=== PATIENT | female | born 1960 | race Caucasian/White ===

== ENCOUNTER 2020-06-09 20:41 | Emergency (ER) | payer BC ==
[~2020-06-09] VITALS: Ht 160 cm; Wt 61.2 kg
[2020-06-09] MEDS ORDERED: ONDANSETRON 4 MG/2 ML (SDV) Z0FRAN ONE (21:11)
[2020-06-09] MEDS ORDERED: ONDANSETRON 4 MG/2 ML (SDV) Z0FRAN IVP ONE (21:30)
[2020-06-09] MEDS ORDERED: NS IV 1000 ML 1,000 ML IV SCH (21:30)
[2020-06-09 21:33] LABS: HEMOGLOBIN 13.8 G/DL (11.5-16.0); MEAN CORPUSCULAR HEMOGLOBIN 31 PG (25-34); WHITE BLOOD COUNT 13.3 10^3/uL (4.3-11.0)
[2020-06-09 21:34] LABS: BASOPHILS # (AUTO) 0.1 10^3/uL (0.0-0.1); BASOPHILS % (AUTO) 1 % (0-10); EOSINOPHILS # (AUTO) 0.1 10^3/uL (0.0-0.3); EOSINOPHILS % (AUTO) 1 % (0-10); HEMATOCRIT 40 % (35-52); LYMPHOCYTES # (AUTO) 2.3 X 10^3 (1.0-4.0); LYMPHOCYTES % (AUTO) 17 % (12-44); MEAN CORPUSCULAR HGB CONC 34 G/DL (32-36); MEAN CORPUSCULAR VOLUME 90 FL (80-99); MEAN PLATELET VOLUME 11.3 FL (7.4-10.4); MONOCYTES # (AUTO) 1.2 X 10^3 (0.0-1.0); MONOCYTES % (AUTO) 9 % (0-12); NEUTROPHILS # (AUTO) 9.5 X 10^3 (1.8-7.8); NEUTROPHILS % (AUTO) 72 % (42-75); PLATELET COUNT 263 10^3/uL (130-400); RED CELL DISTRIBUTION WIDTH 13.2 % (10.0-14.5)
--- NOTE | 2020-06-09 22:04 | ED GI ---
General Chief Complaint: Abdominal/GI Problems Stated Complaint: CHILLS,FEVER,ABD PAIN History of Present Illness Date Seen by Provider: Jun 09, 2020 Time Seen by Provider: 21:00 Initial Comments Patient began having abdominal cramping and faisal nausea and vomiting no stool today some fever and chills some abdominal pain but after vomiting felt much better. Timing/Duration: 4-6 Hours Severity/Quality: Moderate Location: Generalized Abdomen Radiation: No Radiation Activities at Onset: Rest Modifying Factors: Improves With Eating Associated Symptoms: Fever/Chills, Nausea/Vomiting, Weakness Allergies and Home Medications Allergies Coded Allergies: codeine (Verified Allergy, Unknown, 06/09/20) morphine (Verified Allergy, Unknown, 06/09/20) Patient Home Medication List Home Medication List Reviewed: Yes Review of Systems Review of Systems Constitutional: chills, fever, malaise EENTM: No Blurred Vision, No Double Vision Respiratory: No Symptoms Reported Cardiovascular: No Symptoms Reported Gastrointestinal: Denies Abdomen Distended; Abdominal Pain; Denies Diarrhea; Nausea, Vomiting Genitourinary: Denies Burning, Denies Flank Pain Musculoskeletal: No joint pain, No joint swelling, No muscle pain Skin: No no symptoms reported, No change in color Past [id number]-[id number]-Dycpfi Hx Past Med/Social Hx: Reviewed Nursing Past Med/Soc Hx Patient Social History Recent Foreign Travel: No Contact w/Someone Who Travel: No Physical Exam Vital Signs Vital Signs - First Documented 06/09/20 20:50 Temp 36.7 Pulse 133 Resp 20 B/P (MAP) 118/64 (82) Pulse Ox 97 O2 Delivery Nasal Cannula O2 Flow Rate 2.00 Capillary Refill : Height/Weight/BMI Height: '" Weight: lbs. oz. kg; BMI Method: General Appearance: WD/WN, moderate distress HEENT: PERRL/EOMI, TMs normal, pharynx normal Respiratory: lungs clear, normal breath sounds Cardiovascular: regular rate, rhythm, no murmur Gastrointestinal: abnormal bowel sounds; No distended, No guarding, No tenderness Extremities: normal range of motion, normal inspection Neurologic/Psychiatric: alert, normal mood/affect, oriented x 3 Skin: normal color, warm/dry Progress/Results/Core Measures Results/Orders Lab Results Laboratory Tests Test 06/09/20 21:15 06/09/20 21:20 06/09/20 21:30 Range/Units White Blood Count 13.3 H 4.3-11.0 10^3/uL Red Blood Count 4.48 4.35-5.85 10^6/uL Hemoglobin 13.8 11.5-16.0 G/DL Hematocrit 40 35-52 % Mean Corpuscular Volume 90 80-99 FL Mean Corpuscular Hemoglobin 31 25-34 PG Mean Corpuscular Hemoglobin Concent 34 32-36 G/DL Red Cell Distribution Width 13.2 10.0-14.5 % Platelet Count 263 130-400 10^3/uL Mean Platelet Volume 11.3 H 7.4-10.4 FL Neutrophils (%) (Auto) 72 42-75 % Lymphocytes (%) (Auto) 17 12-44 % Monocytes (%) (Auto) 9 0-12 % Eosinophils (%) (Auto) 1 0-10 % Basophils (%) (Auto) 1 0-10 % Neutrophils # (Auto) 9.5 H 1.8-7.8 X 10^3 Lymphocytes # (Auto) 2.3 1.0-4.0 X 10^3 Monocytes # (Auto) 1.2 H 0.0-1.0 X 10^3 Eosinophils # (Auto) 0.1 0.0-0.3 10^3/uL Basophils # (Auto) 0.1 0.0-0.1 10^3/uL My Orders Orders - MARA DU JR, MD Ondansetron Injection (Zofran Injectio (06/09/20 21:11) Cbc With Automated Diff (06/09/20 21:15) Comprehensive Metabolic Panel (06/09/20 21:15) Lipase (06/09/20 21:15) Ua Culture If Indicated (06/09/20 21:15) Coronavirus Sars-Cov-2 So 2018 (06/09/20 21:15) Ondansetron Injection (Zofran Injectio (06/09/20 21:30) Ns Iv 1000 Ml (Sodium Chloride 0.9%) (06/09/20 21:30) Medications Given in ED Current Medications Medications Dose Ordered Sig/Lili Route Start Time Stop Time Status Last Admin Dose Admin Ondansetron HCl 4 mg ONCE ONCE IVP 06/09/20 21:30 06/09/20 21:31 DC 06/09/20 21:13 4 MG Vital Signs/I&O 06/09/20 20:50 Temp 36.7 Pulse 133 Resp 20 B/P (MAP) 118/64 (82) Pulse Ox 97 O2 Delivery Nasal Cannula O2 Flow Rate 2.00 Progress Progress Note : Time: 22:45 Progress Note Significant discussion with the patient about current condition she feels a lot better and wants to go home so that we didn't get to do all the blood work she does want anymore blood work done since she just wants to go home and have nothing else to discuss with her about Zofran and she refused any Zofran as well this point we'll send her home on clear liquids follow-up with her PCP as she needs to. Departure Impression Primary Impression: Nausea and vomiting Qualified Codes: R11.2 - Nausea with vomiting, unspecified Disposition: 01 HOME, SELF-CARE Condition: Stable Departure-Patient Inst. Referrals: WILLY GRIMES MD (PCP/Family) Primary Care Physician Patient Instructions: Nausea and Vomiting, Adult Add. Discharge Instructions: Clear liquids at home return if problems. All discharge instructions reviewed with patient and/or family. Voiced understanding. MARA DU JR, MD Jun 09, 2020 22:04
--- NOTE | 2020-06-09 22:22 | NUR ---
Patient refused to have labs drawn.
[2020-06-09 23:01] LABS: SODIUM 135 MMOL/L (135-145)
[2020-06-09 23:02] LABS: ALANINE AMINOTRANSFERASE 15 U/L (0-55); ALBUMIN 3.7 GM/DL (3.2-4.5); ALKALINE PHOSPHATASE 85 U/L (40-136); BILIRUBIN,TOTAL 0.8 MG/DL (0.1-1.0); BUN/CREATININE RATIO 14; CALCIUM 8.9 MG/DL (8.5-10.1); CARBON DIOXIDE 21 MMOL/L (21-32); CHLORIDE 101 MMOL/L (98-107); CREATININE SERUM 0.65 MG/DL (0.60-1.30); GFR ESTIMATED > 60; GLUCOSE 152 MG/DL (70-105); POTASSIUM 5.2 MMOL/L (3.6-5.0); TOTAL PROTEIN 6.6 GM/DL (6.4-8.2)
[2020-06-09 23:03] LABS: LIPASE 12 U/L (8-78)
[2020-06-09 23:08] VITALS: BP 113/56
[2020-06-09] MEDS ORDERED: NS IV 1000 ML 1,000 ML IV ONE (23:30)
--- OUTSIDE RECORDS SUMMARY | 2020-06-10 00:04 | XMS REPORT | Continuity of Care Document ---
Author Organization Unknown Address Unknown Phone Unavailable Allergies Active Description Code Type Severity Reaction Onset Reported/Identified Relationship to Patient Clinical Status Yes codeine [id number] Drug Allergy Unknown N/A 06/09/2020 Yes morphine [id number] Drug Allergy Unknown N/A 06/09/2020 Medications There is no data. Problems There is no data. Procedures There is no data. Results Test Result Range Complete blood count (CBC) with automate d white blood cell (WBC) differential - 06/09/20 21:15 Blood leukocytes automated count (number/volume) 13.3 10*3/uL 4.3-11.0 Blood erythrocytes automated count (number/volume) 4.48 10*6/uL 4.35-5.85 Venous blood hemoglobin measurement (mass/volume) 13.8 g/dL 11.5-16.0 Blood hematocrit (volume fraction) 40 % 35-52 Automated erythrocyte mean corpuscular volume 90 [ foz_us] 80-99 Automated erythrocyte mean corpuscular h emoglobin (mass per erythrocyte) 31 pg 25-34 Automated erythrocyte mean corpuscular h emoglobin concentration measurement (mass/volume) 34 g/dL 32-36 Automated erythrocyte distribution width ratio 13. 2 % 10.0- 14.5 Automated blood platelet count (count/volume) 263 10*3/uL 130-400 Automated blood platelet mean volume measurement 11.3 [foz_us] 7.4-10.4 Automated blood neutrophils/100 leukocytes 72 % 42-75 Automated blood lymphocytes/100 leukocytes 17 % 12-44 Blood monocytes/100 leukocytes 9 % 0-12 Automated blood eosinophils/100 leukocytes 1 % 0-10 Automated blood basophils/100 leukocytes 1 % 0-10 Blood neutrophils automated count (number/volume) 9.5 10*3 1.8-7.8 Blood lymphocytes automated count (number/volume) 2.3 10*3 1.0-4.0 Blood monocytes automated count (number/volume) 1. 2 10*3 0.0-1.0 Automated eosinophil count 0.1 10*3/uL 0 .0-0.3 Automated blood basophil count (count/volume) 0.1 10*3/uL 0.0-0.1 Comprehensive metabolic panel - 06/09/20 21:30 Serum or plasma sodium measurement (moles/volume) 135 mmol/L 135-145 Serum or plasma potassium measurement (moles/volume) 5.2 mmol/L 3.6-5.0 Serum or plasma chloride measurement (moles/volume) 101 mmol/L 98-107 Carbon dioxide 21 mmol/L 21-32 Serum or plasma anion gap determination (moles/volume) 13 mmol/L 5-14 Serum or plasma urea nitrogen measurement (mass/volume ) 9 mg/dL 7-18 Serum or plasma creatinine measurement (mass/volume) 0.65 mg/dL 0.60-1.30 Serum or plasma urea nitrogen/creatinine mass ratio 14 NRG Serum or plasma creatinine measurement w ith calculation of estimated glomerular filtration rate > NRG Serum or plasma glucose measurement (mass/volume) 152 mg/dL 70-105 Serum or plasma calcium measurement (mass/volume) 8.9 mg/dL 8.5-10.1 Serum or plasma total bilirubin measurement (mass/volu me) 0.8 mg/dL 0.1-1.0 Serum or plasma alkaline phosphatase jessica surement (enzymatic activity/volume) 85 U/L 40-136 Serum or plasma aspartate aminotransfera se measurement (enzymatic activity/volume) 25 U/L 5-34 Serum or plasma alanine aminotransferase measurement (enzymatic activity/volume) 15 U/L 0-55 Serum or plasma protein measurement (mass/volume) 6.6 g/dL 6.4-8.2 Serum or plasma albumin measurement (mass/volume) 3.7 g/dL 3.2-4.5 CALCIUM CORRECTED 9.1 mg/dL 8.5-10.1 Lipase - 06/09/20 21:30 Lipase 12 U/L 8-78 Encounters ACCT No. Visit Date/Time Discharge Status Pt. Type Provider Facility Loc./Unit Complaint [id number] 06/09/2020 20:43:00 020 23:08:00 DIS Emergency FLORIAN STEVENS, MARA Salgado [facility] ER FS CHILLS,FEVER,ABD PAIN
== END 2020-06-09 23:08 | disposition home or self-care (01) ==
LOC: EDUNIT# 20:41 → ER FS 20:43
DX: R11.2 Nausea with vomiting, unspecified (principal); Z88.5 Allergy status to narcotic agent; Z20.828 Contact with and (suspected) exposure to other viral communicable diseases
CPT/HCPCS: 36415; 80053; 83690; 85025; U0002; 87635

== ENCOUNTER → 2021-02-25 | Outpatient (CLI) | payer OTHER ==
--- NOTE | 2021-02-25 10:36 | Diagnostic Imaging Report ---
PROCEDURE: MRI right joint lower extremity without contrast. TECHNIQUE: Multiplanar, multisequence non contrast-enhanced MRI of the right lower extremity was accomplished. INDICATION: Chronic right hip pain. Surgery in the right hip COMPARISON: None FINDINGS: No acute fracture is seen in the pelvis or right hip. There are mild degenerative changes in the bilateral hip joints. Small cystlike change at the anterior head neck junction of the proximal right femur may be degenerative or a synovial herniation pit. There are small bilateral hip joint effusions. The right gluteus minimus tendon demonstrates tendinosis with low-grade partial tearing. The gluteus medius tendon demonstrates mild tendinopathy with partial tearing anteriorly. The origin of the hamstring tendons appears intact. The iliopsoas tendon appears intact. No focal muscular atrophy is seen. There is mild fluid in the greater trochanteric bursa. No iliopsoas bursitis is seen. No focal muscular atrophy is seen. No soft tissue fluid collections or masses are identified. No free fluid is seen in the pelvis. No lymphadenopathy is seen. IMPRESSION: 1. Low-grade partial tearing of the right gluteus medius and minimus tendons with mild greater trochanteric bursitis. 2. Mild degenerative changes in the bilateral hip joints with small bilateral joint effusions. Dictated by: Dictated on workstation # [id number]
== END ==
LOC: RAD 08:34
PROVIDERS: ATTEND Nurse Practitioner Family
DX: S76.011A Strain of muscle, fascia and tendon of right hip, initial encounter (principal); M16.0 Bilateral primary osteoarthritis of hip; M25.452 Effusion, left hip; M25.451 Effusion, right hip; M70.61 Trochanteric bursitis, right hip; X58.XXXA Exposure to other specified factors, initial encounter
CPT/HCPCS: 73721